=== PATIENT | female | born 1970 | race Caucasian/White ===

== ENCOUNTER 2019-07-06 07:18 | Day surgery (SDC) | payer OTHER | END 2019-07-06 11:15 | disposition home or self-care (01) | LOC: AMB-ENDOS 07:18 | DX: D12.0 Benign neoplasm of cecum (principal); K57.30 Diverticulosis of large intestine without perforation or abscess without bleeding; K64.1 Second degree hemorrhoids; Z12.11 Encounter for screening for malignant neoplasm of colon ==

== ENCOUNTER 2023-01-07 10:30 | Inpatient (IN) | payer OTHER ==
[~2023-01-07] VITALS: Ht 154.9 cm; Wt 54.4 kg
[2023-01-07] MEDS ORDERED: DIOVAN40 MG PO (13:16)
[2023-01-13 23:20] LABS: HEMATOCRIT 37.3 % (36.0-45.00); HEMOGLOBIN 11.7 g/dL (12.0-15.00); MEAN CELL VOLUME 90.9 fL (80.00-100.00); MEAN CORPUSCULAR HEMOGLOBIN 28.5 pg (27.00-32.0); MEAN CORPUSCULAR HGB CONC 31.4 g/dl (32.0-36.0); PLATELET COUNT 289 K/uL (150-450)
[2023-01-13 23:49] LABS: CALCIUM 8.3 mg/dL (8.5-10.1); CREATININE SERUM 0.59 mg/dL (0.55-1.02); GFR 107.89; POTASSIUM 3.95 mEq/L (3.5-5.1)
[2023-01-14 06:35] LABS: HEMATOCRIT 34.8 % (36.0-45.00); HEMOGLOBIN 11.3 g/dL (12.0-15.00); MEAN CELL VOLUME 90.8 fL (80.00-100.00); MEAN CORPUSCULAR HEMOGLOBIN 29.4 pg (27.00-32.0); MEAN CORPUSCULAR HGB CONC 32.4 g/dl (32.0-36.0); PLATELET COUNT 263 K/uL (150-450); RED BLOOD COUNT 3.84 M/uL (4.00-6.00); RED CELL DISTRIBUTION WIDTH 14.9 % (11.5-14.5)
[2023-01-14 07:11] LABS: CALCIUM 8.2 mg/dL (8.5-10.1); CREATININE SERUM 0.91 mg/dL (0.55-1.02); GFR 65.43; POTASSIUM 4.56 mEq/L (3.5-5.1)
[2023-01-15 07:33] LABS: HEMATOCRIT 29.4 % (36.0-45.00); HEMOGLOBIN 10.2 g/dL (12.0-15.00); MEAN CELL VOLUME 88.8 fL (80.00-100.00); MEAN CORPUSCULAR HEMOGLOBIN 30.7 pg (27.00-32.0); MEAN CORPUSCULAR HGB CONC 34.6 g/dl (32.0-36.0); PLATELET COUNT 231 K/uL (150-450); RED BLOOD COUNT 3.32 M/uL (4.00-6.00); RED CELL DISTRIBUTION WIDTH 15.5 % (11.5-14.5)
[2023-01-15 07:59] LABS: CALCIUM 7.9 mg/dL (8.5-10.1); CREATININE SERUM 0.57 mg/dL (0.55-1.02); GFR 112.27; POTASSIUM 3.95 mEq/L (3.5-5.1)
== END 2023-01-15 11:29 | disposition home or self-care (01) | DRG 743 ==
LOC: O/R 01-13 07:29 → OB/GYN 01-13 07:29
PROVIDERS: Obstetrics & Gynecology; ADMIT Obstetrics & Gynecology Gynecologic Oncology; ATTEND Obstetrics & Gynecology Gynecologic Oncology
PROC: 0UB90ZZ Excision of Uterus, Open Approach (ICD-10-PCS; principal; 2023-01-13 17:00)
DX: D25.1 Intramural leiomyoma of uterus (principal); Z20.822 Contact with and (suspected) exposure to COVID-19